=== PATIENT | male | born 1980 | race Caucasian/White ===

== ENCOUNTER 2017-12-24 15:38 | Emergency (ER) | payer MEDICAID, SELFPAY ==
[2017-12-24 15:48] VITALS: BP 123/80; PULSE 80; RESP 18; TEMP 36.6; O2SAT 98
--- NOTE | 2017-12-24 16:22 | DI.RAD_ITS ---
SYMPTOM/DIAGNOSIS: PAIN LATERAL EPICONDYLE, AFTER FALL RIGHT ELBOW: There is no evidence of a fracture or dislocation. There is no evidence of a joint effusion.
--- NOTE | 2017-12-24 18:30 | W.ED.GENAD ---
Discharge Plan Disposition Patient Disposition: HOME Condition: Good Discharge Details Chief Complaint: Orthopedic Clinical Impression: Epicondylitis, lateral, Elbow pain Reason For Visit: fall from ladder / elbow pain Primary Care Provider: NONE,NONE ED Provider: Wilmer De Jesus Home Meds and New Rx's Prescriptions: New acetaminophen [Mapap Extra Strength] 500 MG tablet 1,000 mg PO Q6H 5 Days Qty: 60 RF: 0 ibuprofen [Motrin IB] 200 MG tablet 600 mg PO Q6H 5 Days Qty: 60 RF: 0 No Action acetaminophen [Tylenol Extra Strength] 500 mg Tablet 1,000 mg PO DAILY AM RF: 0 ibuprofen 200 mg Tablet 800 mg PO RF: 0 Discharge Instructions Instructions: Tennis Elbow Exercises (GEN), Tennis Elbow (ED) Additional Instructions: Please take the Tylenol and Motrin as directed. You can use a compression band on your forearm to help with the pain if needed. Please take the next 2-3 days off from work to help your arm heal. If you notice any worsening of your symptoms, or any new symptoms such as vomiting, diarrhea, fever, chills, shortness of breath, chest pain, numbness, weakness, or fainting , please return immediately to the emergency department for reevaluation. Please follow up with your primary care provider as soon as possible for reassessment and reevaluation. As always, it was a pleasure participating in your medical care today. Stand Alone Forms: Work Release Medical Decision Making This is a pleasant 37-year-old male who presents for evaluation of right elbow pain. He fell onto the soft ground roughly 5-8 feet up on a ladder, he landed on his right arm. He has pain in his lateral epicondyle and olcrenon, with occasional tingling in his distal hand in the distribution of the radial nerve. Physical exam demonstrates excellent two-point discrimination, normal movement of the hand and forearm. No deformity, bruising, or other abnormality aside for the lateral epicondyle tenderness and olcrenon tenderness. With no signs of deformity, no signs of significant injury we did get an x-ray to evaluate for any fracture. X-ray results have returned from [facility] and demonstrate no acute process or fracture.With negative x-ray readings I feel that he can be safely discharged home with Tylenol, Motrin, and ice. 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 I do feel he has lateral epicondylitis and pain from a bruised olcrenon leading to his symptoms. We will give him a sling for comfort if he needs, however I do not think a splint is indicated at this time with negative x-ray imaging, and a normal neurovascular muscular skeletal exam. We discussed red flags which to return including the importance of close follow-up with his PCP, and the patient understands. I have extensively reviewed the treatment plan and discharge instructions with the patient. I have addressed all patient concerns at this time. The patient was made aware of what symptoms to monitor for that would warrant a return to the emergency department. Discussed the plan with the patient, they demonstrate verbal understanding and agreement with our assessment and plan at this time. HPI General Date/Time Provider Initiated Documentation: 12/24/17 15:44. HPI Narrative: this is a 37-year-old male with no significant past medical history who presents today for evaluation of right arm pain. The patient states that he was on a ladder and fell 8 feet onto the soft ground. He landed on his right elbow. This occurred roughly 5 hours ago. Since then patient has had mild pain on his left lateral epicondyle, with some occasional tingling over the radial nerve distribution when he moves his elbow, or hits his lateral epicondyle. Pain is worse with movement and palpation. He has not taken anything to alleviate the pain. He denies any associated shoulder pain, or wrist pain. He denies any other complaints at this time. He denies any previous fractures, surgeries, IV or illicit drug use. Related Data Home Medications Medication Instructions Recorded Confirmed acetaminophen [Mapap Extra 1,000 mg PO Q6H 5 Days #60 tab 12/24/17 Strength] acetaminophen [Tylenol Extra 1,000 mg PO DAILY AM 12/24/17 12/24/17 Strength] ibuprofen 800 mg PO 12/24/17 ibuprofen [Motrin Ib] 600 mg PO Q6H 5 Days #60 tab 12/24/17 Previous Rx's Medication Instructions Recorded acetaminophen [Mapap Extra 1,000 mg PO Q6H 5 Days #60 tab 12/24/17 Strength] ibuprofen [Motrin Ib] 600 mg PO Q6H 5 Days #60 tab 12/24/17 Allergies Allergy/AdvReac Type Severity Reaction Status Date / Time No Known Allergies Allergy Unverified 12/24/17 15:53 General Stated Complaint: Orthopedic CHELA: 3 Review of Systems Review of Systems All systems reviewed & are unremarkable except as noted in HPI and below PFSH Social History Smoking/Tobacco Use Status: Current every day Exam Narrative Exam Narrative: 1.Const: Well-nourished, Well-developed, appearing stated age 2.Eyes: PERRL, no conjunctival injection, and symmetrical lids. 3.ENT: Atraumatic external nose and ears. Moist MM. Neck: Symmetric, trachea midline, No thyromegaly. 4.CVS: +S1/S2, No murmurs or gallops. Peripheral pulses 2+ and equal in all extremities. Brisk capillary refill in all extremities. 5.RESP: Unlabored respiratory effort. Clear to auscultation bilaterally. No wheezes rales or rhonchi 6.GI: Soft, Nontender/Nondistended, No hepatosplenomegaly. No guarding or rebound. 7.MSK: Normocephalic/Atraumatic, Extremities w/o deformity. No cyanosis or clubbing, Normal movement of all extremities. Patient has +5 out of 5 strength in the left and right distal hands in the medial, ulnar, radial nerve distribution, intact light touch sensation in the left and right hands, and +2 over 2 radial pulses. Patient does have notable reproducible tenderness on the lateral epicondyles of his right upper extremity. No pain or tenderness on the mid or proximal radius, no tenderness over the ulna or the olcrenon. Sensation is intact, movement is intact distal to the extremity. Two-point discrimination is fully intact on the hand, and forearm. No evidence of bruising or swelling of the arm. 8.Skin: Warm, Dry. No rashes or lesions. 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 Sensation grossly intact, no focal neurologic deficits. Please see musculoskeletal of the right upper extremity 10.Psych: (AAO) x3. Appropriate mood and affect Course Vital Signs Temperature 36.6 C 12/24/17 15:48 Pulse 80 12/24/17 15:48 Respiratory Rate 18 12/24/17 15:48 Blood Pressure 123/80 12/24/17 15:48 Pulse Oximetry 98 12/24/17 15:48 Temperature 36.6 C 12/24/17 15:48 Temperature Source Temporal Artery Scan 12/24/17 15:48 Pulse 80 12/24/17 15:48 Respiratory Rate 18 12/24/17 15:48 Respiratory Effort 12/24/17 15:52 Blood Pressure 123/80 12/24/17 15:48 Pulse Oximetry 98 12/24/17 15:48 Oxygen Delivery Method Room Air 12/24/17 15:48 Oxygen Flow Rate 0 12/24/17 15:48 Pain Level 8 12/24/17 15:55
--- NOTE | 2017-12-24 18:31 | DI.VRAD_ITS ---
EXAM: XR Right Elbow Complete, 3 or more Views EXAM DATE/TIME: 12/24/2017 4:23 PM CLINICAL HISTORY: 37 years old, male; Pain; Elbow; Right TECHNIQUE: XR Right elbow 3 or more views. COMPARISON: No relevant prior studies available. FINDINGS: Bones/joints: Normal. Soft tissues: Normal. IMPRESSION: No acute abnormality. Dictated and Authenticated by: Martin Bahena MD. Ordering:JOSH OHFF MD
--- NOTE | 2017-12-24 18:34 | ED.GENADUL_ITS ---
Discharge Plan Disposition Patient Disposition: HOME Condition: Good Discharge Details Chief Complaint: Orthopedic Clinical Impression: Epicondylitis, lateral, Elbow pain Reason For Visit: fall from ladder / elbow pain Primary Care Provider: NONE,NONE ED Provider: Wilmer De Jesus Home Meds and New Rx's Prescriptions: New acetaminophen [Mapap Extra Strength] 500 MG tablet 1,000 mg PO Q6H 5 Days Qty: 60 RF: 0 ibuprofen [Motrin IB] 200 MG tablet 600 mg PO Q6H 5 Days Qty: 60 RF: 0 No Action acetaminophen [Tylenol Extra Strength] 500 mg Tablet 1,000 mg PO DAILY AM RF: 0 ibuprofen 200 mg Tablet 800 mg PO RF: 0 Discharge Instructions Instructions: Tennis Elbow Exercises (GEN), Tennis Elbow (ED) Additional Instructions: Please take the Tylenol and Motrin as directed. You can use a compression band on your forearm to help with the pain if needed. Please take the next 2-3 days off from work to help your arm heal. If you notice any worsening of your symptoms, or any new symptoms such as vomiting, diarrhea, fever, chills, shortness of breath, chest pain, numbness, weakness, or fainting , please return immediately to the emergency department for reevaluation. Please follow up with your primary care provider as soon as possible for reassessment and reevaluation. As always, it was a pleasure participating in your medical care today. Stand Alone Forms: Work Release Medical Decision Making This is a pleasant 37-year-old male who presents for evaluation of right elbow pain. He fell onto the soft ground roughly 5-8 feet up on a ladder , he landed on his right arm. He has pain in his lateral epicondyle and olcrenon, with occasional tingling in his distal hand in the distribution of the radial nerve. Physical exam demonstrates excellent two-point discrimination , normal movement of the hand and forearm. No deformity, bruising, or other abnormality aside for the lateral epicondyle tenderness and olcrenon tenderness. With no signs of deformity, no signs of significant injury we did get an x-ray to evaluate for any fracture. X-ray results have returned from [facility] and demonstrate no acute process or fracture.With negative x -ray readings I feel that he can be safely discharged home with Tylenol, Motrin , and ice. 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 I do feel he has lateral epicondylitis and pain from a bruised olcrenon leading to his symptoms. We will give him a sling for comfort if he needs, however I do not think a splint is indicated at this time with negative x -ray imaging, and a normal neurovascular muscular skeletal exam. We discussed red flags which to return including the importance of close follow-up with his PCP, and the patient understands. I have extensively reviewed the treatment plan and discharge instructions with the patient. I have addressed all patient concerns at this time. The patient was made aware of what symptoms to monitor for that would warrant a return to the emergency department. Discussed the plan with the patient, they demonstrate verbal understanding and agreement with our assessment and plan at this time. HPI General Date/Time Provider Initiated Documentation: 12/24/17 15:44 . HPI Narrative: this is a 37-year-old male with no significant past medical history who presents today for evaluation of right arm pain. The patient states that he was on a ladder and fell 8 feet onto the soft ground. He landed on his right elbow. This occurred roughly 5 hours ago. Since then patient has had mild pain on his left lateral epicondyle, with some occasional tingling over the radial nerve distribution when he moves his elbow, or hits his lateral epicondyle. Pain is worse with movement and palpation. He has not taken anything to alleviate the pain. He denies any associated shoulder pain, or wrist pain. He denies any other complaints at this time. He denies any previous fractures, surgeries, IV or illicit drug use. Related Data Home Medications Medication Instructions Recorded Confirmed acetaminophen [Mapap Extra 1,000 mg PO Q6H 5 Days #60 tab 12/24/17 Strength] acetaminophen [Tylenol Extra 1,000 mg PO DAILY AM 12/24/17 12/24/17 Strength] ibuprofen 800 mg PO 12/24/17 ibuprofen [Motrin Ib] 600 mg PO Q6H 5 Days #60 tab 12/24/17 Previous Rx's Medication Instructions Recorded acetaminophen [Mapap Extra 1,000 mg PO Q6H 5 Days #60 tab 12/24/17 Strength] ibuprofen [Motrin Ib] 600 mg PO Q6H 5 Days #60 tab 12/24/17 Allergies Allergy/AdvReac Type Severity Reaction Status Date / Time No Known Allergies Allergy Unverified 12/24/17 15:53 General Stated Complaint: Orthopedic CHELA: 3 Review of Systems Review of Systems All systems reviewed & are unremarkable except as noted in HPI and below PFSH Social History Smoking/Tobacco Use Status: Current every day Exam Narrative Exam Narrative: 1.Const: Well-nourished, Well-developed, appearing stated age 2.Eyes: PERRL, no conjunctival injection, and symmetrical lids. 3.ENT: Atraumatic external nose and ears. Moist MM. Neck: Symmetric, trachea midline, No thyromegaly. 4.CVS: +S1/S2, No murmurs or gallops. Peripheral pulses 2+ and equal in all extremities. Brisk capillary refill in all extremities. 5.RESP: Unlabored respiratory effort. Clear to auscultation bilaterally. No wheezes rales or rhonchi 6.GI: Soft, Nontender/Nondistended, No hepatosplenomegaly. No guarding or rebound. 7.MSK: Normocephalic/Atraumatic, Extremities w/o deformity. No cyanosis or clubbing, Normal movement of all extremities. Patient has +5 out of 5 strength in the left and right distal hands in the medial, ulnar, radial nerve distribution, intact light touch sensation in the left and right hands, and +2 over 2 radial pulses. Patient does have notable reproducible tenderness on the lateral epicondyles of his right upper extremity. No pain or tenderness on the mid or proximal radius, no tenderness over the ulna or the olcrenon. Sensation is intact, movement is intact distal to the extremity. Two-point discrimination is fully intact on the hand, and forearm. No evidence of bruising or swelling of the arm. 8.Skin: Warm, Dry. No rashes or lesions. 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 Sensation grossly intact, no focal neurologic deficits. Please see musculoskeletal of the right upper extremity 10.Psych: (AAO) x3. Appropriate mood and affect Course Vital Signs Temperature 36.6 C 12/24/17 15:48 Pulse 80 12/24/17 15:48 Respiratory Rate 18 12/24/17 15:48 Blood Pressure 123/80 12/24/17 15:48 Pulse Oximetry 98 12/24/17 15:48 Temperature 36.6 C 12/24/17 15:48 Temperature Source Temporal Artery Scan 12/24/17 15:48 Pulse 80 12/24/17 15:48 Respiratory Rate 18 12/24/17 15:48 Respiratory Effort 12/24/17 15:52 Blood Pressure 123/80 12/24/17 15:48 Pulse Oximetry 98 12/24/17 15:48 Oxygen Delivery Method Room Air 12/24/17 15:48 Oxygen Flow Rate 0 12/24/17 15:48 Pain Level 8 12/24/17 15:55
== END 2017-12-24 18:55 | disposition home or self-care (01) ==
PROVIDERS: Emergency Provider Student in an Organized Health Care Education/Training Program
DX: S59.901A Unspecified injury of right elbow, initial encounter (principal); M77.11 Lateral epicondylitis, right elbow; M25.521 Pain in right elbow; W11.XXXA Fall on and from ladder, initial encounter; R20.2 Paresthesia of skin
CPT/HCPCS: 99283; 73080; L3650

== ENCOUNTER 2021-07-17 16:06 | Outpatient (REF) | payer MEDICAID, SELFPAY ==
[2021-07-18 10:43] LABS: HIV-1/2 Ag & Ab Screen Negative (Negative)
[2021-07-18 11:07] LABS: Hepatitis C Ab w Rflx HCV PCR Negative (Negative)
== END 2021-07-17 16:07 | disposition home or self-care (01) ==
LOC: NCHCN 16:06
PROVIDERS: Visit Provider Family Medicine
DX: R05.3 Chronic cough (principal); F11.10 Opioid abuse, uncomplicated; Z72.0 Tobacco use; Z11.4 Encounter for screening for human immunodeficiency virus [HIV]; Z11.59 Encounter for screening for other viral diseases
CPT/HCPCS: 86803; 87389

== ENCOUNTER → 2021-07-23 01:01 | Outpatient (CLI) | payer MEDICAID, SELFPAY ==
--- NOTE | 2021-07-23 08:41 | DI.RAD_ITS ---
Exam(s) XR CHEST 2V PA LATERAL EXAM: XR CHEST 2V PA LATERAL CLINICAL HISTORY: CHRONIC COUGH, R05.3 TECHNIQUE: 2D digital imaging was performed. COMPARISON: CR CHEST 2 VIEWS PA,LAT from 03/27/2017 FINDINGS: MEDIASTINUM: Normal. HEART: Normal. PULMONARY VASCULATURE: Normal. LUNGS: Clear. PLEURAL SPACE: No pleural effusion or pneumothorax. BONE:Unremarkable for age. IMPRESSION: No acute abnormality. DATA REPOSITORY: RADIATION DOSE DELIVERED:
== END ==
PROVIDERS: PCP Family Medicine; Visit Provider Family Medicine
DX: R05.3 Chronic cough (principal)
CPT/HCPCS: 71046

== ENCOUNTER → 2022-11-04 02:00 | Outpatient (CLI) | payer MEDICAID, SELFPAY ==
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
== END ==
PROVIDERS: PCP Family Medicine; Visit Provider Nurse Practitioner Adult Health
DX: M99.63 Osseous and subluxation stenosis of intervertebral foramina of lumbar region (principal)
CPT/HCPCS: 72148

== ENCOUNTER 2024-02-03 21:29 | Outpatient (REF) | payer MEDICAID, SELFPAY ==
[2024-02-03 21:23] LABS: *AMPHETAMINES SCREEN URINE Negative (Negative); *BARBITURATES SCREEN URINE Negative (Negative); *BENZODIAZEPINES SCREEN URINE Negative (Negative); Cannabinoids THC Negative (Negative); Cocaine Screen,Urine Negative (Negative); METHADONE URINE SCREEN Negative (Negative); OPIATES URINE SCREEN Negative (Negative); Tricyclic Antidepressants Negative (Negative)
== END 2024-02-03 21:30 | disposition home or self-care (01) ==
LOC: NCHCN 21:29
PROVIDERS: PCP Family Medicine; Visit Provider Registered Nurse Psychiatric/Mental Health
DX: F19.11 Other psychoactive substance abuse, in remission (principal)
CPT/HCPCS: 80307

== ENCOUNTER 2024-02-09 14:48 | Outpatient (REF) | payer MEDICAID, SELFPAY ==
[2024-02-17 14:38] LABS: Testosterone, Free 3.93 ng/dL (4.46-17.1); Testosterone, Total 97 ng/dL (240-950)
== END 2024-02-09 14:49 | disposition home or self-care (01) ==
LOC: NCHCN 14:48
PROVIDERS: PCP Family Medicine; Visit Provider Family Medicine
DX: R89.1 Abnormal level of hormones in specimens from other organs, systems and tissues (principal)
CPT/HCPCS: 84402; 84403

== ENCOUNTER 2024-02-24 15:55 | Outpatient (REF) | payer MEDICAID, SELFPAY ==
[2024-02-24 17:14] LABS: *AMPHETAMINES SCREEN URINE Negative (Negative); *BARBITURATES SCREEN URINE Negative (Negative); *BENZODIAZEPINES SCREEN URINE Negative (Negative); Cannabinoids THC Negative (Negative); Cocaine Screen,Urine Negative (Negative); METHADONE URINE SCREEN Negative (Negative); OPIATES URINE SCREEN Negative (Negative)
[2024-02-24 17:15] LABS: Tricyclic Antidepressants Negative (Negative)
== END 2024-02-24 15:56 | disposition home or self-care (01) ==
LOC: NCHCN 15:55
PROVIDERS: PCP Family Medicine; Visit Provider Family Medicine
DX: Z51.81 Encounter for therapeutic drug level monitoring (principal)
CPT/HCPCS: 80307

== ENCOUNTER 2024-09-01 15:33 | Emergency (ER) | payer MEDICAID, SELFPAY ==
[2024-09-01 15:34] VITALS: BP 120/72; PULSE 69; RESP 16; TEMP 36.3; O2SAT 99
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
--- NOTE | 2024-09-01 15:55 | DI.CT_ITS ---
Exam(s) CT HEAD WO EXAM: CT HEAD WO CLINICAL HISTORY: trauma. TECHNIQUE: Imaging Protocol: Axial computed tomography images with coronal and sagittal reformatted images were created and reviewed COMPARISON: CT HEAD WITHOUT CONTRAST from 06/29/2014 FINDINGS: There are no skull fractures. There is no fluid in the visualized paranasal sinuses. There is no evidence of intracranial hemorrhage, mass effect, or shift of midline structures. There are no extra-axial fluid collections. The ventricles are not enlarged or shifted and there is no blood within the ventricular system nor within the basal cisterns. IMPRESSION: No acute intracranial findings on this noninfused CT scan of the brain. Called by myself to ER 09/01/2024 at 4:05 p.m. RADIATION DOSE DELIVERED: 948.53mGy.cm Total DLP DATA REPOSITORY: All CT scans at this facility are submitted to the National Radiology Data Registry (NRDR) Dose Index Registry (DIR) with the [employer] ([employer]). RADIATION OPTIMIZATION: All CT scans at this facility use at least one of these dose optimization techniques: automated exposure control; mA and/or kV adjustment per patient size (includes targeted exams where dose is matched to clinical indication); or iterative reconstruction.
[2024-09-01] MEDS: Acetaminophen 500 MG TAB (16:05)
== END 2024-09-01 16:15 | disposition home or self-care (01) ==
LOC: ER 16:19
PROVIDERS: Emergency Provider Emergency Medicine Emergency Medical Services; PCP Family Medicine
DX: S00.83XA Contusion of other part of head, initial encounter (principal); S06.9X1A Unspecified intracranial injury with loss of consciousness of 30 minutes or less, initial encounter; Y04.0XXA Assault by unarmed brawl or fight, initial encounter; F17.210 Nicotine dependence, cigarettes, uncomplicated
CPT/HCPCS: 99284; 70450; 99283

== ENCOUNTER 2024-10-05 16:27 | Outpatient (REF) | payer MEDICAID, SELFPAY | END 2024-10-05 16:28 | disposition home or self-care (01) | LOC: LBN 16:27 | PROVIDERS: PCP Family Medicine; Visit Provider Physician Assistant Medical | DX: R31.9 Hematuria, unspecified (principal) | CPT/HCPCS: 87086 ==